=== PATIENT | male | born 1985 | race Caucasian/White ===

== ENCOUNTER 2017-02-03 16:44 | Inpatient (IN) | payer OTHER ==
[~2017-02-03] VITALS: Ht 172.7 cm; Wt 87.0 kg
[~2017-02-03 16:44] MED LIST: ACETAMINOP160 MG/51 PO; CLEOCIN300 MG PO; NAPROSYN500 MG PO; PEN-VEE K,VEET500 MG PO; TYLENOL WITH C1 EACH PO
[2017-02-03 16:58] LABS: EOSINOPHIL (%) 0.8 % (0-5); EOSINOPHIL COUNT 0.1 K/uL (0-0.3); HEMATOCRIT 44.3 % (38.0-50.0); IMMATURE GRANULOCYTE (%) 0.6 % (0.0-0.7); INSTRUMENT ABS NEUTROPHIL CT 4.4 K/uL; LYMPHOCYTE COUNT 2.1 K/uL (1.0-2.8); MCH 29.5 PG (29.0-34.0); MCHC 33.6 G/DL (30.0-36.0); MCV 87.7 FL (86-99); MEAN PLAT.VOLUME 9.2 uM^3 (9.0-12.4); MONOCYTE (%) 8.1 % (3-12); MONOCYTE COUNT 0.6 K/uL (0-0.8); NEUTROPHIL (%) 61.3 % (45-76); NEUTROPHIL COUNT 4.4 K/uL (1.8-6.4); PLATELET COUNT 263 K/uL (156-360); RBC DIS.WIDTH-CV 11.7 % (11.8-14.6); RBC DIS.WIDTH-SD 37.4 % (39-53); RED BLOOD COUNT 5.05 M/uL (4.00-5.50); WHITE BLOOD COUNT 7.2 K/uL (4.1-10.2)
[2017-02-03 17:09] LABS: AMYLASE 44 IU/L (1-118); CHLORIDE 107 mEq/L (99-109); POTASSIUM 3.5 mEq/L (3.7-5.4); SODIUM 138 mEq/L (136-147)
[2017-02-03 17:10] LABS: GLUCOSE 96 mg/dL (70-99)
[2017-02-03 17:12] LABS: ANION GAP 10 MEQ/L (2-14)
[2017-02-03 17:14] LABS: GFR ESTIMATE (CALCULATED) > 59 mL/min/; SERUM ETHYL ALCOHOL < 10 mg/dL
[2017-02-03 17:15] LABS: UREA NITROGEN (BUN) 14 mg/dL (9-23)
[2017-02-03 17:17] LABS: LIPASE 9 U/L (1.0-51.0)
[2017-02-03 20:06] LABS: ADD MIUA? NO; BILIRUBIN NEGATIVE; BLOOD NEGATIVE; COLOR YELLOW ((YELLOW)); GLUCOSE (STRIP) NEGATIVE; KETONES 5; LEUKOCYTES NEGATIVE; NITRITE NEGATIVE; PROTEIN (STRIP) 30; UCUL ADDED? NO
[2017-02-03 20:17] LABS: SPECIFIC GRAVITY 1.066 (1.000-1.030)
[2017-02-03 20:20] LABS: ADD MEDTOX COMMENT Y; AMPHETAMINE NEGATIVE (500 ng/mL); BARBITURATES NEGATIVE (200 ng/mL); BENZODIAZEPINES PRESUMPTIVE POSITIVE (150 ng/mL); COCAINE NEGATIVE (150 ng/mL); INTERNAL CONTROLS VALID? YES; METHADONE NEGATIVE (200 ng/mL); METHAMPHETAMINE NEGATIVE (500 ng/mL); OPIATES (MORPHINE) NEGATIVE (100 ng/mL); OXYCODONE NEGATIVE (100 ng/mL); PHENCYCLIDINE NEGATIVE (25 ng/mL); PROPOXYPHENE NEGATIVE (300 ng/mL); THC CANNABINOIDS PRESUMPTIVE POSITIVE (50 ng/mL); TRICYCLIC ANTIDEPRESSANTS NEGATIVE (300 ng/mL)
[2017-02-03 20:45] VITALS: BP 139/86
[2017-02-03 21:03] LABS: BENZODIAZEPINES QUANT VALUE 0 NG/ML; BENZODIAZEPINES, URINE SCREEN Negative (200 ng/mL)
[2017-02-03 23:14] VITALS: BP 121/68
[2017-02-04 00:57] VITALS: BP 117/69
[2017-02-04 03:23] VITALS: BP 118/67
[2017-02-04 05:05] VITALS: BP 110/61
[2017-02-04 05:45] LABS: EOSINOPHIL (%) 1.1 % (0-5); EOSINOPHIL COUNT 0.1 K/uL (0-0.3); IMMATURE GRANULOCYTE (%) 0.1 % (0.0-0.7); INSTRUMENT ABS NEUTROPHIL CT 4.9 K/uL; LYMPHOCYTE COUNT 1.9 K/uL (1.0-2.8); MCH 30.4 PG (29.0-34.0); MCHC 34.9 G/DL (30.0-36.0); MCV 87.2 FL (86-99); MEAN PLAT.VOLUME 9.5 uM^3 (9.0-12.4); MONOCYTE (%) 8.6 % (3-12); MONOCYTE COUNT 0.7 K/uL (0-0.8); NEUTROPHIL (%) 64.7 % (45-76); NEUTROPHIL COUNT 4.9 K/uL (1.8-6.4); PLATELET COUNT 268 K/uL (156-360); RBC DIS.WIDTH-CV 11.8 % (11.8-14.6); RBC DIS.WIDTH-SD 37.6 % (39-53); RED BLOOD COUNT 4.47 M/uL (4.00-5.50); WHITE BLOOD COUNT 7.6 K/uL (4.1-10.2)
[2017-02-04 06:13] LABS: ALKALINE PHOSPHATASE 73 IU/L (3-129); ANION GAP 5 MEQ/L (2-14); CHLORIDE 104 MEQ/L (99-109); GFR ESTIMATE (CALCULATED) > 59 mL/min/; GLUCOSE 94 mg/dL (70-99); POTASSIUM 3.9 MEQ/L (3.7-5.4); SAMPLE HEMOLYSIS CHECK 0; SAMPLE ICTERIC CHECK 0; SAMPLE LIPEMIA CHECK 0; SODIUM 137 MEQ/L (136-147); UREA NITROGEN (BUN) 13 mg/dL (9-23)
[2017-02-04 08:00] VITALS: BP 116/78
[2017-02-04 12:07] VITALS: BP 140/71
[2017-02-04 12:14] VITALS: BP 140/71
[2017-02-04] MEDS ORDERED: OXYCODONE HCL5 MG PO (12:57)
== END 2017-02-04 14:01 | disposition home or self-care (01) | DRG 200 ==
LOC: EME 16:44 → 4EAST 18:13 → EDOF 18:13 → ENRESERV 18:24 → 4EAST 20:34 → ENPENDDIS 02-04 → 4EAST 02-04 14:01
PROVIDERS: Emergency Medicine; Surgery
PROC: 0HQEXZZ Repair Left Lower Arm Skin, External Approach (ICD-10-PCS; principal; 2017-02-03)
DX: S27.0XXA Traumatic pneumothorax, initial encounter (principal); S27.329A Contusion of lung, unspecified, initial encounter; S51.012A Laceration without foreign body of left elbow, initial encounter; F12.90 Cannabis use, unspecified, uncomplicated; B19.20 Unspecified viral hepatitis C without hepatic coma; V58.5XXA Driver of pick-up truck or van injured in noncollision transport accident in traffic accident, initial encounter; Z87.891 Personal history of nicotine dependence; Z76.5 Malingerer [conscious simulation]
CPT/HCPCS: 70450; 71020; 71260; 72125; 72129; 72132; 74177; 80048; 80053; 81003; 82150; 83690; 84999; 85025; 86850; 86900; 86901; 99281; 99285; G0480; J1170; J3010; J3480; S0028

== ENCOUNTER 2017-11-30 04:11 | Emergency (ER) | payer OTHER ==
[~2017-11-30] VITALS: Ht 177.8 cm; Wt 84.5 kg
[~2017-11-30 04:11] MED LIST changes: +MOTRIN800 MG PO; +OXYCODONE HCL5 MG PO; +TRAMADOL HCL50 MG PO
[2017-11-30 04:38] LABS: HEMATOCRIT 42.5 % (38.0-50.0); HEMOGLOBIN 14.8 G/DL (12.5-16.6); MCH 30.5 PG (29.0-34.0); MCHC 34.8 G/DL (30.0-36.0); MCV 87.6 FL (86-99); PLATELET COUNT 296 K/uL (156-360); RBC DIS.WIDTH-CV 11.8 % (11.8-14.6); RBC DIS.WIDTH-SD 37.9 % (39-53); RED BLOOD COUNT 4.85 M/uL (4.00-5.50); WHITE BLOOD COUNT 6.3 K/uL (4.1-10.2)
[2017-11-30 04:47] LABS: CHLORIDE 103 mEq/L (99-109); POTASSIUM 4.2 mEq/L (3.7-5.4); SODIUM 142 mEq/L (136-147)
[2017-11-30 04:49] LABS: GLUCOSE 177 mg/dL (70-99)
[2017-11-30 04:53] LABS: CREATININE 1.5 mg/dL (0.6-1.3); GFR ESTIMATE (CALCULATED) 57 mL/min/ (58.99-99999)
[2017-11-30 04:54] LABS: UREA NITROGEN (BUN) 15 mg/dL (9-23)
[2017-11-30] MEDS ORDERED: NARCAN4 MG NS (06:10)
[2017-11-30] MEDS ORDERED: ZITHROMAX Z-PA250 MG PO (06:10)
[2017-11-30 06:16] LABS: APPEARANCE CLEAR ((CLEAR)); BILIRUBIN NEGATIVE; BLOOD NEGATIVE; COLOR YELLOW ((YELLOW)); GLUCOSE (STRIP) 50; KETONES NEGATIVE; LEUKOCYTES NEGATIVE; NITRITE NEGATIVE; PROTEIN (STRIP) 30; SPECIFIC GRAVITY 1.024 (1.000-1.030); UCUL ADDED? NO
[2017-11-30 06:32] LABS: AMPHETAMINE NEGATIVE (500 ng/mL); BARBITURATES NEGATIVE (200 ng/mL); BENZODIAZEPINES NEGATIVE (150 ng/mL); BUPRENORPHINE NEGATIVE (10 ng/mL); COCAINE NEGATIVE (150 ng/mL); METHADONE NEGATIVE (200 ng/mL); METHAMPHETAMINE NEGATIVE (500 ng/mL); OPIATES (MORPHINE) NEGATIVE (100 ng/mL); OXYCODONE PRESUMPTIVE POSITIVE (100 ng/mL); PHENCYCLIDINE NEGATIVE (25 ng/mL); PROPOXYPHENE NEGATIVE (300 ng/mL); THC CANNABINOIDS PRESUMPTIVE POSITIVE (50 ng/mL); TRICYCLIC ANTIDEPRESSANTS NEGATIVE (300 ng/mL)
[2017-11-30 07:32] VITALS: BP 110/67
== END 2017-11-30 07:32 | disposition home or self-care (01) ==
LOC: EME → EDBD 04:11 → EME 04:11
PROVIDERS: Emergency Medicine
DX: T40.1X1A Poisoning by heroin, accidental (unintentional), initial encounter (principal); F11.10 Opioid abuse, uncomplicated; F12.10 Cannabis abuse, uncomplicated; J18.9 Pneumonia, unspecified organism; Z87.891 Personal history of nicotine dependence; R00.0 Tachycardia, unspecified
CPT/HCPCS: 71045; 80048; 81003; 84999; 85027; 93005; 99281; 99285; J2310; J7030